=== PATIENT | female | born 1995 | race Caucasian/White ===

== ENCOUNTER 2020-07-27 00:21 | Emergency (ER) | payer BC, OTHER ==
[~2020-07-27 00:21] MED LIST: IBUPROFEN600 MG PO; KEFLEX CAP 500500 MG PO; LEXAPRO10 MG PO; PREDNISONE20 MG PO; PRENATAL TABLE1 EAC2 PO; ZITHROMAX500 MG PO
[2020-07-27 02:12] LABS: RED BLOOD COUNT 4.09 M/UL (4.00-5.10); WHITE BLOOD COUNT 16.9 K/UL (4.5-11.0)
[2020-07-27 02:32] LABS: BUN/CREATININE RATIO 17 (0-10)
== END 2020-07-27 03:35 | disposition home or self-care (01) ==
LOC: ER1 00:21
PROVIDERS: Family Medicine
DX: O72.1 Other immediate postpartum hemorrhage (principal); O99.335 Smoking (tobacco) complicating the puerperium; F17.200 Nicotine dependence, unspecified, uncomplicated; Z91.018 Allergy to other foods; Z91.048 Other nonmedicinal substance allergy status
CPT/HCPCS: 80053; 85025; 85610; 86900; 86901; 99284

== ENCOUNTER 2021-08-22 01:25 | Emergency (ER) | payer OTHER ==
[2021-08-22 02:16] LABS: HEMOGLOBIN 13.8 gm/dl (12.3-15.3); RED BLOOD COUNT 4.59 M/UL (4.00-5.10); WHITE BLOOD COUNT 19.2 K/UL (4.5-11.0)
[2021-08-22 03:16] LABS: BUN/CREATININE RATIO 15 (0-10)
[2021-08-22] MEDS ORDERED: ZOFRAN ODT 4 MG4 MG PO (08:42)
== END 2021-08-22 08:52 | disposition home or self-care (01) ==
LOC: ER1 01:25
PROVIDERS: Emergency Medicine
DX: K80.20 Calculus of gallbladder without cholecystitis without obstruction (principal); D72.829 Elevated white blood cell count, unspecified; K76.0 Fatty (change of) liver, not elsewhere classified; Z20.822 Contact with and (suspected) exposure to COVID-19
CPT/HCPCS: 0240U; 76705; 80053; 83605; 83690; 83735; 84100; 85025; 87040; 96374; 96375; 99284; J1885; J2405; J2543; Q9967

== ENCOUNTER 2021-08-23 17:57 | Emergency (ER) | payer OTHER ==
[~2021-08-23 17:57] MED LIST changes: +ZOFRAN ODT 4 MG4 MG PO
[2021-08-23 20:27] LABS: HEMOGLOBIN 13.4 gm/dl (12.3-15.3); RED BLOOD COUNT 4.59 M/UL (4.00-5.10); WHITE BLOOD COUNT 16.1 K/UL (4.5-11.0)
[2021-08-23 20:47] LABS: BUN/CREATININE RATIO 11 (0-10)
[2021-08-24] MEDS ORDERED: ZOFRAN 4 MG TAB4 MG PO (00:03)
== END 2021-08-24 01:13 | disposition home or self-care (01) ==
LOC: ER1 17:57
PROVIDERS: Nurse Practitioner
DX: K80.20 Calculus of gallbladder without cholecystitis without obstruction (principal); F17.210 Nicotine dependence, cigarettes, uncomplicated
CPT/HCPCS: 36415; 80053; 82150; 83690; 85025; 96374; 96375; 99284; J0696; J1885; J2270; J2405

== ENCOUNTER → 2021-09-05 | Day surgery (SDC) | payer OTHER ==
[~2021-09-05] MED LIST changes: +COLACE100 MG PO; +HYDROCODON-ACE1 EAC2 PO; +ZOFRAN 4 MG TAB4 MG PO
== END | disposition home or self-care (01) ==
LOC: OR 05:42
DX: K80.10 Calculus of gallbladder with chronic cholecystitis without obstruction (principal); F17.200 Nicotine dependence, unspecified, uncomplicated; Z20.822 Contact with and (suspected) exposure to COVID-19; Z91.018 Allergy to other foods
CPT/HCPCS: 84703; J0690; J1100; J1170; J1885; J2001; J2250; J2370; J2405; J2704; J2710; J3010; J7030; J7120